=== PATIENT | male | born 1960 | race Caucasian/White ===

== ENCOUNTER 2017-11-03 03:12 | Emergency (ER) | payer OTHER ==
[2017-11-03 06:45] LABS: ABSOLUTE MONOCYTES (AUTO) 0.2 10^3/uL (0.1-1.4); ABSOLUTE NEUT (AUTO) 3.9 10^3/uL (1.7-8.2); BASOPHILS % (AUTO) 0.5 % (0-2); EOSINOPHILS % (AUTO) 0.5 % (0-6); HEMATOCRIT 42.3 % (37.9-51.0); HEMOGLOBIN 14.6 g/dL (13.5-17.0); LYMPHOCYTES % (AUTO) 20.1 % (13-45); MEAN CORPUSCULAR HEMOGLOBIN 31.6 pg (27.0-33.4); MEAN CORPUSCULAR HGB CONC 34.6 g/dL (32.0-36.0); MEAN CORPUSCULAR VOLUME 91 fl (80-97); MONOCYTES % (AUTO) 3.4 % (3-13); PLATELET COUNT 182 10^3/uL (150-450); RED BLOOD COUNT 4.64 10^6/uL (4.35-5.55); RED CELL DISTRIBUTION WIDTH 13.8 % (11.5-14.0); SEGMENTED NEUTROPHILS % (AUTO) 75.5 % (42-78); TOTAL CELLS COUNTED % (AUTO) 100 %; WHITE BLOOD COUNT 5.2 10^3/uL (4.0-10.5)
--- NOTE | 2017-11-03 06:46 | ER Document Report ---
ED General - General Chief Complaint: Psych Problem Stated Complaint: IVC WITH PAPERS Time Seen by Provider: 11/03/17 04:24 Notes: Patient is a 57-year-old male who presents in police custody on involuntary commitment paperwork. 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 He was also harassing people according to the IVC papers. They spoke with the patient's and she says that he has been hallucinating thinking that he is a security advisor. When I talked to the patient he does indeed thinks he is a security advisor. 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 He says he went to [facility] to get some beer earlier under some people there are causing trouble and therefore he went back home and got his bullet proof vest and his "gear" and approach the people. He says he was just trying to help out. 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 He says he does not take any medications. Says he is otherwise healthy. It is unclear if the patient has a history of psychiatric illness. TRAVEL OUTSIDE OF THE [place] IN LAST 30 DAYS: No Past Medical History - Social History Smoking Status: Never Smoker Frequency of alcohol use: None Drug Abuse: None Family History: Reviewed & Not Pertinent Review of Systems - Review of Systems Notes: My Normal Review Basic REVIEW OF SYSTEMS: CONSTITUTIONAL : Denies fever, chills, or sweats. Denies recent illness. CARDIOVASCULAR: Denies chest pain. RESPIRATORY: Denies cough, cold, or chest congestion. Denies shortness of breath, difficulty breathing, or wheezing. GASTROINTESTINAL: Denies abdominal pain. Denies nausea, vomiting, or diarrhea. Denies constipation. Last BM: MUSCULOSKELETAL: Denies neck or back pain or joint pain or swelling. SKIN: Denies rash or skin lesions. HNEUROLOGICAL: Denies altered mental status or loss of consciousness. Denies headache. Denies weakness or paralysis or loss of use of either side. Denies problems with gait or speech. Denies sensory or motor loss. PSYCHIATRIC: Hallucinations ALL OTHER SYSTEMS REVIEWED AND NEGATIVE. Physical Exam - Notes Notes: General Appearance: Well nourished, alert, cooperative, no acute distress, no obvious discomfort. Vitals: reviewed, See vital signs table. Head: no swelling or tenderness to the head Eyes: PERRL, EOMI, Conjuctiva clear Mouth: No decreasd moisture Neck: Supple, no neck tenderness Lungs: No wheezing, No rales, No rhonci, No accessory muscle use, good air exchange bilaterally. Heart: Normal rate, Regular rythm, No murmur, no rub Abdomen: Normal BS, soft, No rigidity, No abdominal tenderness, No guarding, no rebound, Extremities: strength 5/5 in all extremities, good pulses in all extremities, no swelling or tenderness in the extremities, no edema. Skin: warm, dry, appropriate color, no rash Neuro: speech clear, oriented x 3, normal affect, responds appropriately to questions. Course - Re-evaluation Re-evalutation: 11/03/17 06:46 Patient's when he talks he really thinks he is a security advisor and talks about this business he has been running yet according to the IVC paperwork his says that he is hallucinating and does not have a security advisor business. Is concerning that he was going around [facility] with a bulletproof vest and a weapon and trying to act as a security advisor even though is not hired as one. Blood work is still pending. Once blood work is back and reviewed patient will be medically stable for psychiatric evaluation. Dictation of this chart was performed using voice recognition software; therefore, there may be some unintended grammatical errors. 11/03/17 06:47 - Laboratory Result Diagrams: 11/03/17 06:28 11/03/17 06:28 - EKG Interpretation by Me Additional EKG results interpreted by me: 11/03/17 07:12 EKG is reviewed and interpreted by me. EKG shows sinus rhythm with rate [address] segment elevation or depression. No ischemic T-wave inversions. AL interval, QRS duration, QTc intervals are within normal range. No old EKG available for comparison. Dictation of this chart was performed using voice recognition software; therefore, there may be some unintended grammatical errors. Discharge - Discharge Clinical Impression: Hallucinations Condition: Stable Disposition: PSYCH HOSP/UNIT
[2017-11-03 06:58] LABS: POTASSIUM 4.8 mmol/L (3.6-5.0)
[2017-11-03 06:59] LABS: ALANINE AMINOTRANSFERASE 32 U/L (21-72); ALBUMIN 4.4 g/dL (3.5-5.0); ALCOHOL 145 mg/dL (NONE DETECTED); ALKALINE PHOSPHATASE 51 U/L (38-126); ANION GAP 14 (5-19); ASPARTATE AMINO TRANSFERASE 28 U/L (17-59); BILIRUBIN,DIRECT 0.3 mg/dL (0.0-0.4); BILIRUBIN,TOTAL 0.3 mg/dL (0.2-1.3); BLOOD UREA NITROGEN 17 mg/dL (7-20); CALCIUM 9.3 mg/dL (8.4-10.2); CARBON DIOXIDE 23 mmol/L (22-30); CHLORIDE 111 mmol/L (98-107); GLUCOSE 121 mg/dL (75-110); SODIUM 148.1 mmol/L (137-145); TOTAL PROTEIN 6.6 g/dL (6.3-8.2)
[2017-11-03 07:15] LABS: ACETAMINOPHEN < 10 ug/mL (10-30); SALICYLATE < 1.0 mg/dL (2.0-20.0)
[2017-11-03 08:13] LABS: APPEARANCE,URINE CLOUDY; BILIRUBIN,URINE NEGATIVE (NEGATIVE); CALCIUM OXALATE CRYSTALS,URINE FEW /HPF; COLOR,URINE YELLOW; GLUCOSE, URINE NEGATIVE (NEGATIVE); KETONES,URINE NEGATIVE (NEGATIVE); LEUKOCYTE ESTERASE,URINE NEGATIVE (NEGATIVE); NITRITE,URINE NEGATIVE (NEGATIVE); PROTEIN,URINE NEGATIVE (NEGATIVE); UROBILINOGEN,URINE NEGATIVE mg/dL (<2.0)
[2017-11-03 08:25] LABS: URINE AMPHETAMINES SCREEN NEGATIVE; URINE BARBITURATES SCREEN NEGATIVE; URINE BENZODIAZEPINES SCREEN NEGATIVE; URINE COCAINE SCREEN NEGATIVE; URINE MARIJUANA (THC) SCREEN NEGATIVE; URINE METHADONE SCREEN NEGATIVE; URINE PHENCYCLIDINE SCREEN NEGATIVE
[2017-11-03 08:31] VITALS: BP 153/74
[2017-11-03] MEDS ORDERED: BENZTROPINE MESYLATE 1 MG TABLET PO SCH (10:00)
[2017-11-03] MEDS ORDERED: HALOPERIDOL 5 MG TABLET PO SCH (10:00)
--- NOTE | 2017-11-03 10:24 | ER Document Report ---
Doctor's Note Notes: 11/03/17 10:23 The patient is sitting up on the side of the bed in no distress. He is waiting for Ede to evaluate. Medications were instituted: Haldol 5 mg BID and Cogentin 1 mg daily. 11/03/17 12:18 The patient was accepted at [facility] and is waiting on transport.
--- NOTE | 2017-11-03 11:46 | PSYCHOLOGICAL NOTE ---
Psych Note - Psych Note Psych Note: Reason for Consult: psychosis (delusions) Pt arrived with [facility] [employer] department via ambulation. [facility] reports Pt was walking around [employer] inside and the parking lot. 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 [facility] reports pt is confused, repeating things. [facility] Head reports pt's states he forgets he is not in the [employer] anymore. [facility] Head reports pt has been calm and compliant. Patient disclosed that he ran out of beer last night [facility] When he got there he saw "Thugs" with their cars and because they had tattoos thought they were in a gang. He continued to report that he knows that they "hang out" in the parking lot however went up to them and asked them to leave. At that point he reports that words were exchanged so he went back to his car to get his "year." Patient states that he has a bulletproof vest and his gun. He reports running around the building with his wallet that has his badge inside of it. 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 Patient reports he completed 27 years and retired his E8. He confirms that [facility] did not hire him as a computer security specialist however because he is self-employed thought that he needed to ensure the safety of everyone. 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 Patient reports that his truck has yellow lights going across the top of his truck and has the word security on the windows. He denies having any certification or licensing. Patient is alert and orientated to person, place, time. Mood is euthymic with congruent affect. Patient is noted to be very pleasant calmly sitting on the bed. Patient denies suicidal homicidal ideation. Patient firmly believes that he is a computer security specialist that is self-employed and must ensure the public's safety. Attention and concentration are fair. Eye contact is well-maintained. Conversational speech was within normal rate, tone and prosody. Intellectual abilities appear to be within the average range. Insight, judgment, impulse control are poor. Clinician contacted patient's disclose patient was accepted to [facility]. She disclosed the patient has had difficulty adjusting to civilian life since getting out of [employer]. She states that she does know some people ask her to watch their property while he is gone but denies that he is a actual computer security specialist. She also reports that she knows the patient was intoxicated last night. Medication Recommendations per [facility]'s contracted psychiatrist Dr. Mikie SCANLON are as follows 1. Haldol 5mg twice daily 2. Cogentin 1mg daily Diagnosis 291.9 (F10.99) unspecified alcohol related disorder 298.9 (F29) Unspecified psychosis Impression/plan: patient is recommended to continued under IVC. Patient in acute psychosis and is a danger to himself and others. Patient thinks he is a cyber security engineer and was walking around [facility] with a bullet proof vest on and a weapon (pellet gun). Patient's reports the patient is not a cyber security engineer and sometimes thinks he still is in the [employer]. Patient has been accepted to [facility]; transportation will occur today. Dr. Shabazz was consulted on the care and management of this patient; attending physician is in agreement with recommendations and disposition.
--- NOTE | 2017-11-04 00:20 | EKG REPORT ---
SEVERITY:- OTHERWISE NORMAL ECG - SINUS RHYTHM MINIMAL ST ELEVATION, ANTEROLATERAL LEADS : Confirmed by: Emani Siegel MD 04-Nov-2017 00:20:30
== END 2017-11-03 14:03 ==
LOC: ER 03:12
DX: F29 Unspecified psychosis not due to a substance or known physiological condition (principal); F10.99 Alcohol use, unspecified with unspecified alcohol-induced disorder
CPT/HCPCS: 36415; 80053; 80307; 81001; 85025; 93005; 93010; 99285